=== PATIENT | female | born 1995 | race Hispanic/Latino ===

== ENCOUNTER 2018-07-09 21:00 | Emergency (ER) | payer OTHER ==
[~2018-07-09] VITALS: Ht 154.9 cm; Wt 51.7 kg
[2018-07-09 23:10] LABS: CLARITY,URINE SL CLOUDY (CLEAR); COLOR,URINE YELLOW (YELLOW)
[2018-07-09 23:11] LABS: BILIRUBIN,URINE NEGATIVE (NEGATIVE); KETONES,URINE NEGATIVE (NEGATIVE); LEUKOCYTE ESTERASE ,URINE NEGATIVE (NEGATIVE); NITRITE,URINE POSITIVE (NEGATIVE); PROTEIN,URINE DIPSTICK NEGATIVE (NEGATIVE); URINE UROBILINOGEN 0.2 mg/dL (0.2 - 1)
[2018-07-09 23:12] LABS: PREGNANCY TEST, URINE POSITIVE (NEGATIVE)
[2018-07-09 23:26] LABS: BACTERIA,URINE MANY /HPF; EPITHELIAL CELLS,URINE RARE /LPF; RBC,URINE 0-5 /HPF (0-5); WBC,URINE (MAN) 0-5 /HPF (0-5)
[2018-07-10 02:33] LABS: BASOPHILS % 0.4 % (0.0-1.0); EOSINOPHILS # (AUTO) 0.1 (0.0-0.4); EOSINOPHILS % 1.3 % (0.0-6.0); HEMATOCRIT 35.9 % (34.2-44.1); HEMOGLOBIN 11.3 g/dL (12.0-16.0); LYMPHOCYTES # (AUTO) 1.9 (1.0-3.2); LYMPHOCYTES % 27.4 % (18.0-39.1); MEAN CORPUSCULAR HEMOGLOBIN 26.7 pg (28-32); MEAN CORPUSCULAR HGB CONC 31.5 g/dL (31-35); MEAN CORPUSCULAR VOLUME 84.9 fL (81-99); MONOCYTES # (AUTO) 0.6 (0.2-0.8); MONOCYTES % 8.1 % (4.4-11.3); NEUTROPHILS # (AUTO) 4.2 (2.1-6.9); NEUTROPHILS % 62.7 % (38.7-80.0); PLATELET COUNT 228 x10e3/uL (140-360); RED BLOOD COUNT 4.23 x10e6/uL (3.6-5.1); RED CELL DISTRIBUTION WIDTH 18.8 % (11.7-14.4)
[2018-07-10 02:35] LABS: ALANINE AMINOTRANSFERASE 36 IU/L (0-55); ALBUMIN 4.2 g/dL (3.5-5.0); ALBUMIN/GLOBULIN RATIO 1.2 (0.8-2.0); ALKALINE PHOSPHATASE 64 IU/L (40-150); ANION GAP 14.4 mmol/L (8-16); BLOOD UREA NITROGEN 16 mg/dL (7-26); BUN/CREATININE RATIO 21 (6-25); CALCIUM 9.7 mg/dL (8.4-10.2); CARBON DIOXIDE 22 mmol/L (22-29); CHLORIDE 105 mmol/L (98-107); CREATININE, SERUM 0.76 mg/dL (0.57-1.11); EST GLOMERULAR FILTRATION RATE > 60 ML/MIN (60-); GLUCOSE 114 mg/dL (74-118); POTASSIUM 3.4 mmol/L (3.5-5.1); SODIUM 138 mmol/L (136-145)
--- NOTE | 2018-07-10 05:35 | Diagnostic Imaging Report ---
EXAM: Obstetric Pelvic Ultrasound COMPARISON: Vaginal bleeding in TECHNIQUE: Transabdominal and transvaginal evaluation of the pelvis was performed in the transverse and longitudinal planes. CLINICAL HISTORY: 23 year old A0; last menstrual period: 05/16/2018 FINDINGS:Uterus: Orientation: Normal Size: 6.8 x 4.4 x 5.2 cm, enlarged Mass: None Cervix: Normal Gestational Sac: Location: Intrauterine Average sac diameter: 1.73 cm Appearance: Normal in contour Subchorionic hemorrhage: None Yolk sac: Normal Embryo/Fetus: [place] rump length: 1.16 cm Estimated sonographic GA: 7 weeks and 2 days Cardiac activity: No cardiac activity detected. Right ovary Size: 3.4 x 1.8 x 3.8 cm Mass/Cyst: None Left ovary Size: 2.7 x 1.6 x 1.9 cm Mass/Cyst: None Cul-de-sac: No free fluid IMPRESSION: Findings consistent with nonviable based on CRL >= 7 mm and no heart tones. classification: Viable: can potentially result in a liveborn baby Visualized embryo with FHT Nonviable: Findings diagnostic of failure Ectopic CRL >= 7 mm and no FHT MSD >= 25 mm and no embryo No FHT >= 2 weeks after US showed GS w/o YS No FHT >= 11 days after US showed GS w/ YS Intrauterine of uncertain viability: Intrauterine GS with no FHT and no definite findings of failure of unknown location: Positive urine or serum test and no IUP or ectopic on US ?@ Diagnostic Criteria for Nonviable Early in the First Trimester N Engl J Med 2013;369:1443-51. DOI: [id number] Signed by: Dr. Brittany Johnston M.D. on 07/10/2018 5:32 AM
[2018-07-10 06:06] VITALS: BP 100/74
== END 2018-07-10 06:07 | disposition home or self-care (01) ==
LOC: ER 21:00
DX: O20.9 Hemorrhage in early pregnancy, unspecified (principal); O20.0 Threatened abortion
CPT/HCPCS: 36415; 76817; 80053; 81001; 81025; 84702; 85025; 86850; 86900; 99284

== ENCOUNTER 2019-06-14 21:44 | Emergency (ER) | payer OTHER ==
[~2019-06-14] VITALS: Ht 154.9 cm; Wt 51.7 kg
--- OUTSIDE RECORDS SUMMARY | 2019-06-14 21:47 | XMS REPORT ---
Author Author [facility] Address Unknown Phone Unavailable Care Team Providers Care Developer Support Engineer Name Role Phone Tenzin ARDON Unavailable Unavailable Problems This patient has no known problems. Allergies, Adverse Reactions, Alerts This patient has no known allergies or adverse reactions. Medications This patient has no known medications. Encounters Start Date/Time End Date/Time Encounter Type Admission Type Attending Clinicians Care Facility Care Department Encounter ID 2018-07-01 18:25:00 2018-07-01 18:25:00 Emergency E [id number] Results Test Description Test Time Test Comments Text Results Atomic Results Result Comments US OB TRANSVAG 1ST TRI SINGLE 2018-07-10 05:26:00 [place] [id number] Patient Name: WILLIAM SON MR #: [id number] : 1995 Age/Sex: 23/F Req #: [id number] Adm Physician: Ordered by: ROSE ARDON MD Report #: [id number] Location: ER Room/Bed: Procedure: [id number] US/US OB TRANSVAG 1ST TRI SINGLE Exam Date: 07/10/18 Exam Time: 0413 REPORT STATUS: Signed EXAM: Obstetric Pelvic Ultrasound COMPARISON: Vaginal bleeding in TECHNIQUE: Transabdominal and transvaginal evaluation of the pelvis was performed in the transverse and longitudinal planes. CLINICAL HISTORY: 23 year old A0; last menstrual period: 05/16/2018 FINDINGS:Uterus: Orientation: Normal Size: 6.8 x 4.4 x 5.2 cm, enlarged Mass: None Cervix: Normal Gestational Sac: Location: Intrauterine Average sac diameter: 1.73 cm Appearance: Normal in contour Subchorionic hemorrhage: None Yolk sac: Normal Embryo/Fetus: [place] rump length: 1.16 cm Estimated sonographic GA: 7 weeks and 2 days Cardiac activity: No cardiac activity detected. Right ovary Size: 3.4 x 1.8 x 3.8 cm Mass/Cyst: None Left ovary Size: 2.7 x 1.6 x 1.9 cm Mass/Cyst: None Cul-de-sac: No free fluid IMPRESSION: Findings consistent with nonviable based on CRL >=7 mm and no heart tones. classification: Viable: can potentially result in a liveborn baby Visualized embryo with FHT Nonviable: Findings diagnostic of failure Ectopic CRL >=7 mm and no FHT MSD >=25 mm and no embryo No FHT >=2 weeks after US showed GS w/o YS No FHT >=11 days after US showed GS w/ YS Intrauterine of uncertain viability: Intrauterine GS with no FHT and no definite findings of failure of unknown location: Positive urine or serum test and no IUP or ectopic on US ?@ Diagnostic Criteria for Nonviable Early in the First Trimester N Engl J Med 2013;369:1443-51. DOI: [id number] Signed by: Dr. Brittany Johnston M.D. on 07/10/2018 5:32 AM Dictated By: DIO JOHNSTON MD, MD Electronically Sig rita By: DIO JOHNSTON MD, MD on 07/10/18531 Transcribed By: HENRIETTA on 07/10/18531 COPY TO: ROSE ARDON MD
[2019-06-15 00:29] LABS: BASOPHILS % 0.3 % (0.0-1.0); EOSINOPHILS # (AUTO) 0.1 (0.0-0.4); EOSINOPHILS % 0.7 % (0.0-6.0); HEMATOCRIT 37.3 % (34.2-44.1); HEMOGLOBIN 12.4 g/dL (12.0-16.0); LYMPHOCYTES # (AUTO) 1.7 (1.0-3.2); LYMPHOCYTES % 18.9 % (18.0-39.1); MEAN CORPUSCULAR HEMOGLOBIN 30.2 pg (28-32); MEAN CORPUSCULAR HGB CONC 33.2 g/dL (31-35); MONOCYTES # (AUTO) 0.7 (0.2-0.8); MONOCYTES % 7.4 % (4.4-11.3); NEUTROPHILS # (AUTO) 6.6 (2.1-6.9); NEUTROPHILS % 72.5 % (38.7-80.0); PLATELET COUNT 208 x10e3/uL (140-360); RED CELL DISTRIBUTION WIDTH 13.2 % (11.7-14.4)
[2019-06-15 00:44] LABS: AMPHETAMINES SCREEN,URINE NEGATIVE (NEGATIVE); BENZODIAZEPINES SCREEN,URINE NEGATIVE (NEGATIVE); CLARITY,URINE CLEAR (CLEAR); COLOR,URINE YELLOW (YELLOW); LEUKOCYTE ESTERASE ,URINE NEGATIVE (NEGATIVE); NITRITE,URINE NEGATIVE (NEGATIVE); PHENCYCLIDINE SCREEN,URINE NEGATIVE (NEGATIVE); PREGNANCY TEST, URINE POSITIVE (NEGATIVE)
[2019-06-15 00:45] LABS: BILIRUBIN,URINE NEGATIVE (NEGATIVE); KETONES,URINE NEGATIVE (NEGATIVE); PROTEIN,URINE DIPSTICK NEGATIVE (NEGATIVE); URINE UROBILINOGEN 1 mg/dL (0.2 - 1)
[2019-06-15 00:47] LABS: ANION GAP 11.8 mmol/L (8-16); BLOOD UREA NITROGEN 10 mg/dL (7-26); BUN/CREATININE RATIO 14 (6-25); CARBON DIOXIDE 25 mmol/L (22-29); CHLORIDE 107 mmol/L (98-107); CREATININE, SERUM 0.74 mg/dL (0.57-1.11); EST GLOMERULAR FILTRATION RATE > 60 ML/MIN (60-); GLUCOSE 89 mg/dL (74-118); POTASSIUM 3.8 mmol/L (3.5-5.1); SODIUM 140 mmol/L (136-145)
[2019-06-15 00:48] LABS: ALANINE AMINOTRANSFERASE 22 IU/L (0-55); ALBUMIN/GLOBULIN RATIO 1.2 (0.8-2.0); ALKALINE PHOSPHATASE 57 IU/L (40-150); CALCIUM 9.9 mg/dL (8.4-10.2)
[2019-06-15 00:55] LABS: BACTERIA,URINE MANY /HPF; EPITHELIAL CELLS,URINE FEW /LPF
[2019-06-15] MEDS ORDERED: MACROBID 100 M100 MG PO (01:57)
[2019-06-15 04:15] VITALS: BP 116/79
== END 2019-06-15 02:00 | disposition home or self-care (01) ==
LOC: ER 21:44
DX: O26.891 Other specified pregnancy related conditions, first trimester (principal); O23.11 Infections of bladder in pregnancy, first trimester; R31.9 Hematuria, unspecified
CPT/HCPCS: 36415; 80053; 80307; 81001; 81025; 84702; 85025; 99283